=== PATIENT | female | born 2000 | race Caucasian/White ===

== ENCOUNTER 2019-01-29 21:42 | Emergency (ER) | payer MEDICAID ==
[~2019-01-29] VITALS: Ht 157.5 cm; Wt 51.7 kg
[2019-01-29 21:48] VITALS: Ht 157.5 cm; Wt 51.7 kg
[2019-01-29 22:45] VITALS: BP 99/61
== END 2019-01-29 22:45 | disposition home or self-care (01) ==
LOC: ED 21:42
DX: O91.22 Nonpurulent mastitis associated with the puerperium (principal); R51 Headache